=== PATIENT | female | born 1955 | race Caucasian/White ===

== ENCOUNTER 2017-02-19 17:43 | Emergency (ER) | payer MEDICAID, OTHER ==
[~2017-02-19] VITALS: Ht 162.6 cm; Wt 84.0 kg
[~2017-02-19 17:43] MED LIST: GLIP10TA12 PO; LISI-420 PO; METF10002 PO; PIOG30TA PO; SIMV10TA1 PO; SULF1TAB12 PO
[2017-02-19 18:01] VITALS: BP 136/72
--- NOTE | 2017-02-19 19:50 | NUR ---
PATIENT LEFT WITHOUT BEING SEEN BY DR. HERNANDEZ. NO FURTHER CARE PROVIDED FOR PATIENT.
--- NOTE | 2017-02-19 19:50 | NUR ---
CALLED BY [facility], NO ANSWER
== END 2017-02-19 19:50 | disposition left against medical advice (07) ==
LOC: MED 17:43
DX: R10.9 Unspecified abdominal pain (principal); R19.7 Diarrhea, unspecified; R11.0 Nausea

== ENCOUNTER 2022-03-13 17:29 | Emergency (ER) | payer MEDICAID, OTHER ==
[~2022-03-13] VITALS: Ht 162.6 cm; Wt 82.6 kg
[~2022-03-13 17:29] MED LIST changes: -LISI-420 PO; +LISI20TA29 PO; +METF-1253 PO; -METF10002 PO; -PIOG30TA PO; +PIOG30TA51 PO; +SULF-954 PO; -SULF1TAB12 PO
[2022-03-13 17:30] VITALS: BP 183/65
--- NOTE | 2022-03-13 17:55 | NUR ---
PT TAKEN TO X RAY.
--- NOTE | 2022-03-13 17:56 | NUR ---
BIB FRIEND C/O10/10 LEFT WRIST PAIN& SWELLING S/P FALL X YESTERDAY. BLOOD SUGAR 155 AT THIS TIME. PMH: DM, HTN, HLD
--- NOTE | 2022-03-13 18:00 | NUR ---
66YR OLD FEMALE BIB SELF C/O L ARM PAIN S/P FALL YESTERDAY. PAIN LEVEL 10/10. SWELLING BRUSING TO L ARM . PT STATES SHE SLIPPED AND FALL AT HOME YESTERDAY. GOOD CAP REFILL. DR CORTEZ AT BEDSIDE. PT HAD XRAY. PT IN BED WITH HOB ELEVATED. BED AT LOWEST POSITION. NKDA HTN DM
--- NOTE | 2022-03-13 18:03 | NUR ---
PT BACK FROM RAD AND TAKEN TO ER BED 6
--- NOTE | 2022-03-13 18:19 | NUR ---
DR CORTEZ AT BEDSIDE EVALUATING PT
[2022-03-13] MEDS ORDERED: HYDROcodone/APAP 5/325 MG 1 TAB TAB PO ONE (18:25)
[2022-03-13] MEDS ORDERED: KETOROLAC 30 MG/ML VIAL IM ONE (18:25)
[2022-03-13] MEDS ORDERED: NAPR-54 PO (18:55)
--- NOTE | 2022-03-13 19:01 | NUR ---
TRAE WRAP APPLIED TO L WRIST. + CMS
[2022-03-13 19:13] VITALS: BP 134/82
== END 2022-03-13 19:13 | disposition home or self-care (01) ==
LOC: MED 17:29
DX: S60.212A Contusion of left wrist, initial encounter (principal); E11.9 Type 2 diabetes mellitus without complications; I10 Essential (primary) hypertension; W01.0XXA Fall on same level from slipping, tripping and stumbling without subsequent striking against object, initial encounter; Y93.89 Activity, other specified; Y92.89 Other specified places as the place of occurrence of the external cause; Y99.8 Other external cause status
CPT/HCPCS: 73110; 96372; 99283; J1885